=== PATIENT | male | born 1950 | race Caucasian/White ===

== ENCOUNTER 2024-03-09 08:02 | Outpatient (CLI) | payer OTHER, SELFPAY ==
--- OUTSIDE RECORDS SUMMARY | 2024-03-09 08:15 | XMS_ITS | Continuity of Care Document ---
Author Organization [facility] Address [address] [place] [address] Phone Care Team Providers Care Yield Analyst Name Role Phone Brisa Ward Unavailable Unavailable Procedures Procedure Date Office/outpatient Visit, Est Visual Field Examination(s) Office/outpatient Visit, Est Office/outpatient Visit, Est Office/outpatient Visit, Est Post-op Follow-up Visit Post-op Follow-up Visit Nov- After Cataract Laser Surgery Eye Exam Established Pt Visual Field Examination(s) Office/outpatient Visit, Est Corneal Pachymetry Post-op Follow-up Visit Post-op Follow-up Visit Post-op Follow-up Visit Remove Cataract, Insert Lens Cyclophotocoag,endoscopic Eye Exam Established Pt Echo Exam Of Eye Office/outpatient Visit, Est Advance Directives Directive Yes / No Effective Date File Name No Information Encounters Encounter Description Practice Location Reason(s) For Visit Diagnoses Date Provider Providers Copied on Encounter Office/outpat ient Visit, Est [facility], [address], [place], [place], [id number], [place] tel:[phone] [facility] No Information Oct- 9-201 0 Sylvia Ledezma. [address] [facility] , [address], [place], [place], [facility], . tel:[phone] [facility], [address], [place], [place], [id number], tel:[phone] [facility] No Information 0 Sylvia Rodrigues [address] [facility] , [address], [place], [place], [facility], [place]. tel:[phone] Referring Provider: Brisa Main [address] [place], [place] [address]ate [place] [address], [place], [place], [facility]. tel:[phone] Office/outpat ient Visit, [facility], [id number] [place] [address] [address], [place], [place], [id number], tel:[phone] [facility] No Information 0 Sylvia Rodrigues [address] [facility] , [address], [place], [place], [facility], . tel:[phone] Office/outpat ient Visit, [facility], [address] [place] [address] [address], [place], [place], [id number], [place] tel:[phone] [facility] No Information 9 Sylvia Rodrigues [facility] , [address], [place], [place], [facility], [place]. tel:[phone] Office/outpat ient Visit, [facility], [address] [place] [address] [address], [place], [place], [id number], [place] [phone] [facility] No Information 9 Sylvia Rodrigues [address] [facility] , [address], [place], [facility], . tel:[phone] [facility], [address] [place] [address] [address], [place], [place], [address], [place] tel:[phone] [facility] No Information Nov-1 3-200 8 Sylvia Pandan. [address] , [address], [place], [facility], [place]. tel:[phone] [facility] Eye [facility], [address] [place] [address] [address], [place], [place], [address], [place] tel:[phone] [facility] No Information Oct-1 6-200 8 Sylvia Pandan. [address] , [address], [place], [facility], [place]. tel:[phone] [facility], [address] [place] [address] [address], [place], [place], [id number], [place] [phone] Nov [facility] No Information Oct-1 5-200 8 Sylvia Pandan. [address] , [address], [place], [facility], [place]. tel:[phone] [facility], [address] [place] [address] [address], [place], [place], [address], [place] tel:[phone] [facility] No Information Oct-0 9-200 8 Sylvia Pandan. [address] , [address], [place], [facility], [place]. tel:[phone] [facility], [address] [place] [address] [address], [place], [place], [address], [place] tel:[phone] [facility] No Information Jay-1 9-200 8 Sylvia Pandan. [address] , [address], [place], [address], [place]. tel:[phone] Referring Provider: Brisa Main, [address], [place], [facility]. tel:[phone] Office/outpat ient Visit, Est [facility], [address] [place] [address] [address], [place], [place], [id number], [place] tel:[phone] [facility] No Information Dec-0 6-200 7 Sylvia Ledezma. [address] , [address], [place], [facility], [place]. tel:[phone] Referring Provider: Brisa Main, [address], [place], [facility]. tel:[phone] [facility], [address] [place] [address] [address], [place], [place], [address], [place] tel:[phone] [facility] No Information Aug-0 2-200 7 Sylvia Ledezma. [address] , [address], [place], [facility], [place]. tel:[phone] [facility], [address] [place] [address] [address], [place], [place], [address], [place] [phone] [facility] No Information Murray-0 5-200 7 Sylvia Ledezma. [address] , [address], [place], [facility], [place]. tel:[phone] [facility], [address] [place] [address] [address], [place], [place], [address], [place] tel:[phone] [facility] [place] No Information Jay-2 8-200 7 Sylvia Rodrigues [address] , [address], [place], [facility], [place]. tel:[phone] [facility], [address] [place] [address] [address], [place], [place], [id number], [place] tel:[phone] [facility] No Information Jay-2 7-200 7 Sylvia Pandan. [address] , [address], [place], [facility], [place]. tel:[phone] [facility], [address], [place], [place], [id number], [place] tel:[phone] [facility] No Information 7 Sylvia Ledezma. [address] [facility] , [address], [place], [address], . tel:[phone] Referring Provider: Bonnie Page [facility] [address], [place], [address]. tel:[phone] Office/outpat ient Visit, [facility], [address], [place], [place], [id number], tel:[phone] [facility] No Information Sylvia Ledezma. [address] [facility] , [address], [place], [address], . tel:[phone] Family History Family Member Type Diagnosis Age At Onset No Information Payers Payer name Insurance type Covered green party ID Authoriza tion(s) No Information Social History Type Description Quantity Date Captured Comments Sex Male Smoking Status No Information Chief Complaint And Reason For Visit No Information Reason For Referral Reason For Referral No Information History Of Present Illness Encounter Date Complaint History Of Prese nt Illness No Information Functional Status Date Functional Assessmen t No Information Instructions Date Instruction Additional Infor mation No Information Assessments Type Assessment Date No Information Patient Care Teams Name Effective Dates (start - stop) Status Members No Information
--- NOTE | 2024-04-11 15:51 | WPDSLEEPSTUD ---
Sleep Study Date of Study: 03/09/24 Ordering Provider: Ritesh Lmaa MD Interpreting Physician: Isatu Ambriz DO Sleep Study Type: Split Polysomnogram Height: 1.78 m Weight: 190.509 kg Body Mass Index: 60.2 Neck Circumference (inches): 22 [place]: 11 Reason for Sleep Study Current CPAP machine is 9 years old. Needs a new study to get new equipment. Sleep History The patient is a 73-year-old male that had a sleep study ordered by his primary care physician for evaluation of sleep apnea. The patient rarely awakens from sleep short of breath. He denies awakening at night with heartburn, belching or cough. He rarely snores but is never loud enough that others complain. He occasionally has trouble sleeping when he has a cold. He denies waking up gasping for air throughout the night. He denies having breathing problems at night observed by himself or others. He rarely sweats excessively at night. He rarely has heart palpitations or irregular heartbeats during the night. He frequently falls asleep during the day but never while driving. He denies sleep paralysis and cataplexy. He rarely has trouble at school or work due to sleepiness. He occasionally experiences vivid dreamlike scenes upon awakening or falling asleep. He denies feeling afraid of going to sleep. He denies having nightmares. He rarely remembers his dreams. He occasionally has thoughts racing through his mind. He rarely feels sad, depressed or anxious. He rarely has muscular tension. He rarely notices parts of his body jerk. He denies kicking during the night. He denies having crawling and aching feelings in his legs and denies having leg pain during the. He denies grinding his teeth during sleep and denies awakening with morning jaw pain. He is occasionally bothered by pain during the day but rarely awakened by pain during the night. He occasionally wakes up feeling stiff in the morning. He occasionally wakes up with sore or achy muscles. He rarely wakes up with pain in the neck, spine and other joints. He goes to bed at 11:00 p.m. every night. It takes him 10-15 minutes to fall asleep. He wakes up 2-3 times throughout the night to urinate is able to fall back asleep within 10-15 minutes. He wakes up at 6:00 a.m. on weekdays and at 6:30 a.m. on the weekends. He typically gets 6-7 hours of sleep per night. He will stay in bed for 10-15 minutes after waking up in the morning. He currently lives with his . He will consume caffeinated beverages within 2 hours of bedtime. He denies engaging in physical exercise before bedtime. He will watch television before falling asleep. He will take naps in the afternoon or the evening and they are refreshing. He consumes 3-5 caffeinated beverages per day. He denies tobacco, alcohol and recreational drug PMFSH Past Medical History Medical History At high risk for falls Morbid obesity with BMI of 70 and over, adult BMI 77 on 02/12/2024. Screening for diabetic retinopathy no retinopathy 06/03/2023. At low risk for fall Controlled diabetes mellitus without complication, without long-term current use of insulin fasting glucose 113 with hemoglobin A1c 5.6 on 05/09/2022. Glucose 103 with hemoglobin A1c 5.5 on 11/22/2022. Fasting glucose 122 with hemoglobin A1c 6.1 with urine microalbumin ratio normal on 05/27/2023. Glucose 101, hemoglobin A1c 6.3, GFR 88 on 12/26/2023. Encounter for prostate cancer screening PSA 0.13 on 10/23/2021. PSA 0.22 on 11/22/2022. PSA 0.18 on 12/26/2023. Morbid obesity with body mass index (BMI) of 40.0 to 49.9 Morbid obesity with BMI of 50.0-59.9, adult Morbid obesity with BMI of 60.0-69.9, adult COVID-19 (~10/08/19) Benign paroxysmal positional vertigo due to bilateral vestibular disorder Abnormal fasting glucose glucose 113 with hemoglobin A1c 5.6 on 05/09/2022. Abnormal levels of other serum enzymes Body mass index (bmi) 60.0-69.9, adult (11/16/18) Family History Family History Grandparent Family history of cardiovascular disease, Onset Age: 85 Cerebrovascular accident, Onset Age: 8 Family history of malignant neoplasm, Onset Age: 71 Family history of Alzheimer's disease, Onset Age: 90 Mother Family history of malignant neoplasm, Onset Age: 83 Father Family history of malignant neoplasm, Onset Age: 86 Social History Social History Smoking status: Never smoker Alcohol intake: never Substance use: never Substance use type: does not use Lack of Transportation: No Lack of Food: Never True Current Housing: I Have Housing Concerned About Future Housing: No Difficulty Paying Gas/Electric Bills: No Difficulty Paying for Meds: No Currently Unemployed: No Education: Master's Degree or Higher Difficulty w/ Childcare or Family Care: No Living arrangements: with family Spiritual care concerns: No Medications Home Medications ?Medication ?Instructions ?Recorded ?Confirmed ?Type dorzolamide 22.3 mg-timolol 6.8 1 drop ophthalmic (eye) BID 01/12/19 03/18/24 History mg/mL eye drops travoprost 0.004 % eye drops 1 drop ophthalmic (eye) QPM 01/12/19 03/18/24 History (Travatan Z) amlodipine 5 mg tablet 5 mg PO DAILY #90 tabs 04/21/23 03/18/24 Rx furosemide 40 mg tablet 40 mg PO QAM #90 tabs 04/21/23 03/18/24 Rx atorvastatin 20 mg tablet 20 mg PO QHS #90 tabs 06/05/23 03/18/24 Rx metformin 500 mg tablet,extended 500 mg PO BID #180 tabs 06/05/23 03/18/24 Rx release 24 hr azelastine 205.5 mcg (0.15 %) 1 spray intranasal BID PRN 02/12/24 03/18/24 Rx nasal spray allergy #30 mL lisinopril 40 mg tablet 40 mg PO . b.i.d. #180 tabs 02/12/24 03/18/24 Rx metoprolol succinate 200 mg 200 mg PO DAILY #90 tabs 03/29/24 Rx tablet,extended release 24 hr Sleep Procedure A full night split study using the [employer] SleepFireID multi-channel system recorded the standard physiologic parameters including EEG, EOG, submentalis EMG, anterior tibialis EMG, EKG, body position, nasal and oral airflow using nasal pressure sensor and thermistor.? Respiratory parameters of chest and abdominal movements were recorded with Respiratory Inductance Plethysmography belts. Oxygen saturation was recorded by pulse oximetry. Video monitoring was also performed. Sleep stages, periodic limb movements, and EEG arousals were scored in 30 second epochs according to the criteria of the AASM Scoring Manual. The Apnea-Hypopnea Index was calculated using [facility] guidelines for definition of hypopnea with 4% O2 desaturations while scoring respiratory events. Sleep Architecture During the diagnostic portion of the study, the total recording time was 219.3 minutes. The total sleep time was 127.0 minutes. Sleep latency was 5.3 minutes.? REM sleep was not achieved during this portion of the study. Sleep Efficiency was 57.9%. The patient had 33 awakenings for an awakening index of 15.6. Wake after sleep onset time was 87.0 minutes. The patient spent 38.5 minutes, 30.3% of total sleep time in Stage N1. The patient spent 88.5 minutes, 69.7% in Stage N2. The patient spent 0.0 minutes, 0.0% in Stage N3. The patient spent 0.0 minutes, 0.0% in Stage REM sleep. At 01:16:48 AM the patient was placed on PAP treatment and was titrated at pressures ranging from 5 cm H20 up to 19/15 cm H20. During the treatment portion of the study, the total recording time was 365.5 minutes.? The total sleep time was 256.5 minutes. Sleep latency was 15.5 minutes. REM latency was 189.5 minutes. Sleep Efficiency was 70.2%. Wake after Sleep Onset time was 93.5 minutes. The patient spent 26.5 minutes, 10.3% of total sleep time in Stage N1. The patient spent 196.0 minutes, 76.4% in Stage N2. The patient spent 19.5 minutes, 7.6% in Stage N3. The patient spent 14.5 minutes, 5.7% in Stage REM. Respiratory Analysis During the diagnostic portion of the study, the patient had 116 hypopneas and 35 obstructive apneas for an overall Apnea Hypopnea Index of 71.3 events per hour. The REM Apnea Hypopnea Index was 0. The NREM Apnea Hypopnea Index was 71.3. The patient had a Central Apnea Hypopnea Index of 0. There was no evidence of Boubacar-Dietz Respirations. During the treatment portion of the study, the patient had 47 hypopneas for an overall Apnea Hypopnea Index of 11.0 events per hour. The REM Apnea Hypopnea Index was 20.7. The NREM Apnea Hypopnea Index was 10.4. The patient had a Central Apnea Hypopnea Index of 0. There was no evidence of Boubacar-Dietz Respirations. The patient was started on CPAP 5 cm H2O and titrated to BPAP 19/15 cm H2O due to hypopneas. The patient was able to fall asleep starting on CPAP 5 cm H2O. The patient was able to achieve REM sleep starting on CPAP 16 cm H2O. The patient was able to achieve a residual AHI less than 5 with both NREM and REM sleep on the final pressure. On BPAP 19/15 cm H2O, the patient spent 68.5 minutes in NREM and 5.5 in REM with 5 hypopneas, resulting in an AHI of 4.1. The patient had a sleep efficiency of 64.6% on this pressure setting. Arousals During the diagnostic portion of the study, there were a total of 157 arousals for an arousal index of 74.2.? There were 51 respiratory arousals for an index of 24.1. There were 21 periodic limb movement arousals for an index of 9.9.? There were 16 isolated limb movement arousals for an index of 7.6. There were 70 spontaneous arousals for an index of 33.1. During the treatment portion of the study, there were a total of 135 arousals for an index of 31.6.? There were 4 respiratory arousals for an index of 0.9. There were 63 periodic limb movement arousals for an index of 14.7.? There were 12 isolated limb movement arousals for an index of 2.8. There were 60 spontaneous arousals for an index of 14.0. Periodic Limb Movements During the diagnostic portion of the study, the patient had 33 isolated limb movements with an index of 15.6. The patient had 83 periodic limb movements with an index of 39.2, which is elevated (normal < 15). The patient had a total of 116 limb movements with a total limb movement index of 54.8. During the treatment portion of the study, the patient had 43 isolated limb movements with an index of 10.1. The patient had 392 periodic limb movements with an index of 91.7, which is elevated (normal < 15). The patient had a total of 435 limb movements with a total limb movement index of 101.8. Oximetry Data During the diagnostic portion of the study, the patient had an average oxygen saturation of 87.5% in wake with a minimum oxygen saturation of 78% and a maximum oxygen saturation of 96%. The patient had an average oxygen saturation of 85.1% in sleep with a minimum oxygen saturation of 76.0% and a maximum oxygen saturation of 94.0%. The patient had 188 oxygen desaturations resulting in an Oxygen Desaturation Index of 88.8. The patient spent 167.8 minutes, 78% of total sleep time with an oxygen saturation less than 88%. During the treatment portion of the study, the patient had an average oxygen saturation of 90.7% in wake with a minimum oxygen saturation of 81.0% and a maximum oxygen saturation of 97.0%. The patient had an average oxygen saturation of 89.1% in sleep with a minimum oxygen saturation of 80.0% and a maximum oxygen saturation of 96.0%. The patient had 83 oxygen desaturations resulting in an Oxygen Desaturation Index of 19.4. The patient spent 103.5 minutes, 28.4% of total sleep time with an oxygen saturation less than 88%. Snoring Profile Moderate snoring was present in the baseline portion of the study. The snoring resolved once the patient was started on CPAP. Cardiac Profile The EKG lead showed normal sinus rhythm. No arrhythmias or PVCs were seen. During the diagnostic portion of the study, the average pulse rate was 60.3 bpm.? The minimum pulse rate was 53.0 bpm. The maximum pulse rate was 73.0 bpm. During the treatment portion of the study, the average pulse rate was 54.2 bpm.? The minimum pulse rate was 44.0 bpm. The maximum pulse rate was 74.0 bpm. EEG Profile No signs of seizure activity seen. Assessment and Plan Assessment and Plan (1) LANEY (obstructive sleep apnea): Code(s): G47.33 - Obstructive sleep apnea (adult) (pediatric) Status: Acute Assessment and Plan: In the baseline portion study, the patient had an overall AHI of 71.3 with desaturation down to 76%. This is consistent with severe sleep apnea. The patient was started on CPAP 5 cm H2O and titrated to BPAP 19/15 cm H2O due to hypopneas. The patient's sleep apnea resolved on the final pressure setting but his SpO2 ranged between 89-91%. I recommend that the patient be prescribed Resmed BPAP 19/15 cm H2O, size large F&P Solo nasal pillow mask, BPAP filters/tubing and heated humidity. The patient may have to switch to a standard nasal mask or a full face mask if he has difficulty tolerating the pressure setting with the mask listed above. I recommend that the patient have nocturnal oximetry done 2 weeks after starting BPAP to ensure his SpO2>90%. This should be used with all episodes of sleep.? Compliance should be reviewed within 31-90 days of starting therapy for usage greater than 4 hours per night greater than 70% of the nights. The patient should be asked about symptoms such as?excessive daytime sleepiness, quality of sleep, decreased nocturia, increased?mental functioning such as memory, mood, and concentration. Data The data obtained during this sleep study is adequate for interpretation. Certification This sleep study has been reviewed by a board certified sleep medicine physician.
[2024-04-12 10:30] VITALS: BMI 60.2
== END 2024-03-10 08:02 | disposition home or self-care (01) ==
PROVIDERS: Visit Provider Family Medicine
DX: G47.33 Obstructive sleep apnea (adult) (pediatric) (principal); I10 Essential (primary) hypertension; Z99.89 Dependence on other enabling machines and devices
CPT/HCPCS: 95811

== ENCOUNTER 2024-05-07 01:02 | Day surgery (SDC) | payer OTHER, SELFPAY ==
[2024-03-18 09:05] VITALS: BMI 57.4
--- NOTE | 2024-04-27 08:45 | PC.NURSE ---
Spoke with patient who confirms no new health history or medications.
--- OUTSIDE RECORDS SUMMARY | 2024-05-07 01:05 | XMS_ITS | Continuity of Care Document ---
Author Organization [facility] Address [address] [place] [address] Phone Care Team Providers Care Dial Marker Name Role Phone Brisa Ward Unavailable Unavailable [...] on Encounter Office/outpat ient Visit, Est [facility], [address], [place], [place], [id number], [place] tel:[phone] SEC [facility] No Information Oct-0 9-201 0 Sylvia Ledezma. [address] [facility] , [address], [place], [place], [facility], . tel:[phone] [facility], [address], [place], [place], [id number], tel:[phone] SEC [facility] No Information 0 Sylvia Rodrigues [address] [facility] , [address], [place], [facility], [place]. tel:[phone] Referring Provider: Brisa Main [address] [place], [place] [address], [place], [facility]. tel:[phone] Office/outpat ient Visit, [facility], [address] [place] [address] [address], [place], [place], [id number], tel:[phone] [facility] No Information 0 Sylvia Rodrigues [address] [facility] , [address], [place], [facility], . tel:[phone] Office/outpat ient Visit, [facility], [address] [place] [address] [address], [place], [place], [address], [place] tel:[phone] [facility] No Information 9 Sylvia Rodrigues [facility] , [address], [place], [facility], [place]. tel:[phone] Office/outpat ient Visit, [facility], [address] [place] [address] [address], [place], [place], [address], [place] [phone] [facility] No Information 9 Sylvia Rodrigues [address] [facility] , [address], [place], [facility], . tel:[phone] [facility], [address] [place] [address] [address], [place], [place], [address], [place] tel:[phone] SEC [facility] No Information Nov-1 3-200 8 Sylvia Pandan. [address] , [address], [place], [facility], [place]. tel:[phone] [facility], [address] [place] [address] [address], [place], [place], [address], [place] tel:[phone] SEC [facility] No Information Oct-1 6-200 8 Sylvia Pandan. [address] , [address], [place], [facility], [place]. tel:[phone] [facility], [address] [place] [address] [address], [place], [place], [address], [place] [phone] Nov [facility] No Information Oct-1 5-200 8 Sylvia Pandan. [address] , [address], [place], [facility], [place]. tel:[phone] [facility], [address] [place] [address] [address], [place], [place], [address], [place] tel:[phone] SEC [facility] No Information Oct-0 9-200 8 Sylvia Pandan. [address] , [address], [place], [facility], [place]. tel:[phone] [facility], [address] [place] [address] [address], [place], [place], [address], [place] tel:[phone] SEC [facility] No Information Jay-1 9-200 8 Sylvia Pandan. [address] , [address], [place], [address], [place]. tel:[phone] Referring Provider: Brisa Main, [address], [place], [facility]. tel:[phone] Office/outpat ient Visit, Est [facility], [address] [place] [address] [address], [place], [place], [address], [place] tel:[phone] SEC [facility] No Information Dec-0 6-200 7 Sylvia Ledezma. [address] , [address], [place], [facility], [place]. tel:[phone] Referring Provider: Brisa Main, [address], [place], [facility]. tel:[phone] [facility], [address] [place] [address] [address], [place], [place], [address], [place] tel:[phone] SEC [facility] No Information Aug-0 2-200 7 Sylvia Ledezma. [address] , [address], [place], [facility], [place]. tel:[phone] [facility], [address] [place] [address] [address], [place], [place], [address], [place] [phone] [facility] No Information Murray-0 5-200 7 Sylvia Ledezma. [address] , [address], [place], [facility], [place]. tel:[phone] [facility], [address] [place] [address] [address], [place], [place], [address], [place] tel:[phone] [facility] No Information Jay-2 8-200 7 Sylvia Rodrigues [address] , [address], [place], [facility], [place]. tel:[phone] [facility], [address] [place] [address] [address], [place], [place], [address], [place] tel:[phone] [facility] No Information Jay-2 7-200 7 Sylvia Pandan. [address] , [address], [place], [facility], [place]. tel:[phone] [facility], [address], [place], [place], [address], [place] tel:[phone] [facility] No Information 7 Sylvia Ledezma. [address] [facility] , [address], [place], [address], . tel:[phone] Referring Provider: Bonnie Page [facility] [address], [place], [address]. tel:[phone] Office/outpat ient Visit, [facility], [address], [place], [place], [id number], tel:[phone] [facility] No Information Sylvia Ledezma. [address] [facility] , [address], [place], [address], . tel:[phone] Family History Family Member Type Diagnosis Age At Onset No Information Payers Payer name Insurance type Covered constitution party ID Authoriza tion(s) No Information Social [...]
[2024-05-07 11:12] VITALS: BP 178/96; PULSE 80; RESP 20; TEMP 35.9; O2SAT 97
[2024-05-07] MEDS: LACTATED RINGERS 1,000 ML 150 ML IV CONT (11:28)
[2024-05-07 11:30] LABS: Glucose Point of Care 159 mg/dl (65-105)
--- NOTE | 2024-05-07 12:03 | WPDANESEPPF ---
Anes - Initial Pre Proc Eval Procedure: Operation Date: 05/07/24 12:30 Proposed Procedures p Colonoscopy - Trever Langford MD Date/Time: 05/07/24 12:03 Surgeon: Trever Langford MD Pre Op Diagnosis: Fecal abnormalities Patient Data Age: 73 Gender: M Height: 1.78 m Weight: 206.6 kg Last Vital Signs Temp 35.9 C L 05/07/24 11:12 Pulse 80 05/07/24 11:12 Resp 20 05/07/24 11:12 BP 178/96 H 05/07/24 11:12 Pulse Ox 97 05/07/24 11:12 O2 Del Method Room Air 05/07/24 11:12 Allergies Allergy/AdvReac Type Severity Reaction Status Date / Time No Known Allergies Allergy Verified 05/07/24 11:10 Home Medications ?Medication ?Instructions ?Recorded ?Confirmed ?Type dorzolamide 22.3 mg-timolol 6.8 1 drop ophthalmic (eye) BID 01/12/19 05/07/24 History mg/mL eye drops travoprost 0.004 % eye drops 1 drop ophthalmic (eye) QPM 01/12/19 05/07/24 History (Travatan Z) amlodipine 5 mg tablet 5 mg PO DAILY #90 tabs 04/21/23 05/07/24 Rx furosemide 40 mg tablet 40 mg PO QAM #90 tabs 04/21/23 05/07/24 Rx atorvastatin 20 mg tablet 20 mg PO QHS #90 tabs 06/05/23 05/07/24 Rx metformin 500 mg tablet,extended 500 mg PO BID #180 tabs 06/05/23 05/07/24 Rx release 24 hr azelastine 205.5 mcg (0.15 %) 1 spray intranasal BID PRN 02/12/24 03/18/24 Rx nasal spray allergy #30 mL lisinopril 40 mg tablet 40 mg PO . b.i.d. #180 tabs 02/12/24 05/07/24 Rx metoprolol succinate 200 mg 200 mg PO DAILY #90 tabs 03/29/24 05/07/24 Rx tablet,extended release 24 hr Laboratory Tests 05/07/24 11:17 POC Capillary Glucose 159 H mg/dl (65-105) Patient hx anesthesia problems: none Family hx anesthesia problems: none Results Review: All pre-operative results and documents have been reviewed as part of the pre-operative evaluation. [facility] Past Medical History Medical History PLMD (periodic limb movement disorder) significant periodic limb movement disorder noted on split night sleep study 03/09/2024 with index of 39.2 At high risk for falls Morbid obesity with BMI of 70 and over, adult BMI 77 on 02/12/2024. Screening for diabetic retinopathy no retinopathy 06/03/2023. At low risk for fall Controlled diabetes mellitus without complication, without long-term current use of insulin fasting glucose 113 with hemoglobin A1c 5.6 on 05/09/2022. Glucose 103 with hemoglobin A1c 5.5 on 11/22/2022. Fasting glucose 122 with hemoglobin A1c 6.1 with urine microalbumin ratio normal on 05/27/2023. Glucose 101, hemoglobin A1c 6.3, GFR 88 on 12/26/2023. Encounter for prostate cancer screening PSA 0.13 on 10/23/2021. PSA 0.22 on 11/22/2022. PSA 0.18 on 12/26/2023. Morbid obesity with body mass index (BMI) of 40.0 to 49.9 Morbid obesity with BMI of 50.0-59.9, adult Morbid obesity with BMI of 60.0-69.9, adult COVID-19 (~10/08/19) Benign paroxysmal positional vertigo due to bilateral vestibular disorder Abnormal fasting glucose glucose 113 with hemoglobin A1c 5.6 on 05/09/2022. Abnormal levels of other serum enzymes Body mass index (bmi) 60.0-69.9, adult (11/16/18) Family History Family History Grandparent Family history of cardiovascular disease, Onset Age: 85 Cerebrovascular accident, Onset Age: 8 Family history of malignant neoplasm, Onset Age: 71 Family history of Alzheimer's disease, Onset Age: 90 Mother Family history of malignant neoplasm, Onset Age: 83 Father Family history of malignant neoplasm, Onset Age: 86 Social History Social History Smoking status: Never smoker Alcohol intake: never Substance use: never Substance use type: does not use Lack of Transportation: No Lack of Food: Never True Current Housing: I Have Housing Concerned About Future Housing: No Difficulty Paying Gas/Electric Bills: No Difficulty Paying for Meds: No Currently Unemployed: No Education: Master's Degree or Higher Difficulty w/ Childcare or Family Care: No Living arrangements: with family Spiritual care concerns: No Anes - Eval Final PreProcedure Day of Procedure 05/07/24 12:03 Patient weight: super morbidly obese Heart: regular rate and rhythm Lungs: clear to auscultation Airway: Mallampati scale class II Neurological: alert and oriented Last oral intake: >/= 8 hours ASA classification: IV Emergent: no Anesthetic plan: proceed Anesthesia type and monitoring: general GIVS and standard monitoring Results Review: All pre-operative results and documents have been reviewed as part of the pre-operative evaluation. Informed Consent: The patient's anesthetic plan and its attendant risks and benefits were discussed with the patient/family/POA. Questions were solicited and answers provided to the satisfaction of the patient/family/POA.
[2024-05-07 13:08] VITALS: BP 130/77; PULSE 59; RESP 19; O2SAT 95
[2024-05-07 13:18] VITALS: BP 134/80; PULSE 55; RESP 22; O2SAT 100
[2024-05-07 13:28] VITALS: BP 156/78; PULSE 55; RESP 23; O2SAT 100
--- NOTE | 2024-05-11 15:24 | P.HP_ITS ---
H&P: HPI History of Present Illness Date/Time: 05/11/24 15:24 - note corresponding to enconter of 05/07/24 Chief Complaint: History of colon polyps Narrative: The patient has a history of colonic polyps, the last colonoscopy was around 5 years ago Review of Systems Review of Systems: All systems reviewed & are unremarkable except as noted in HPI and below PMFSH Past Medical History Medical History (Updated 05/11/24 @ 08:13 by Ritesh Lama MD) Adenomatous colon polyp (~05/07/24) tubular adenoma transverse colon and sigmoid colon with hyperplastic polyp of the rectum on 05/07/2024. PLMD (periodic limb movement disorder) significant periodic limb movement disorder noted on split night sleep study 03/09/2024 with index of 39.2 At high risk for falls Morbid obesity with BMI of 70 and over, adult BMI 77 on 02/12/2024. Screening for diabetic retinopathy no retinopathy 06/03/2023. At low risk for fall Controlled diabetes mellitus without complication, without long-term current use of insulin fasting glucose 113 with hemoglobin A1c 5.6 on 05/09/2022. Glucose 103 with hemoglobin A1c 5.5 on 11/22/2022. Fasting glucose 122 with hemoglobin A1c 6.1 with urine microalbumin ratio normal on 05/27/2023. Glucose 101, hem oglobin A1c 6.3, GFR 88 on 12/26/2023. Encounter for prostate cancer screening PSA 0.13 on 10/23/2021. PSA 0.22 on 11/22/2022. PSA 0.18 on 12/26/2023. Morbid obesity with body mass index (BMI) of 40.0 to 49.9 Morbid obesity with BMI of 50.0-59.9, adult Morbid obesity with BMI of 60.0-69.9, adult COVID-19 (~10/08/19) Benign paroxysmal positional vertigo due to bilateral vestibular disorder Abnormal fasting glucose glucose 113 with hemoglobin A1c 5.6 on 05/09/2022. Abnormal levels of other serum enzymes Body mass index (bmi) 60.0-69.9, adult (11/16/18) Family History Family History Grandparent Family history of cardiovascular disease, Onset Age: 85 Cerebrovascular accident, Onset Age: 8 Family history of malignant neoplasm, Onset Age: 71 Family history of Alzheimer's disease, Onset Age: 90 Mother Family history of malignant neoplasm, Onset Age: 83 Father Family history of malignant neoplasm, Onset Age: 86 Social History Social History Smoking status: Never smoker Alcohol intake: never Substance use: never Substance use type: does not use Lack of Transportation: No Lack of Food: Never True Current Housing: I Have Housing Concerned About Future Housing: No Difficulty Paying Gas/Electric Bills: No Difficulty Paying for Meds: No Currently Unemployed: No Education: Master's Degree or Higher Difficulty w/ Childcare or Family Care: No Living arrangements: with family Spiritual care concerns: No Meds Home Medications and Allergies Home Medications ?Medication ?Instructions ?Recorded ?Confirmed ?Type dorzolamide 22.3 mg-timolol 6.8 1 drop ophthalmic (eye) BID 01/12/19 05/07/24 History mg/mL eye drops travoprost 0.004 % eye drops 1 drop ophthalmic (eye) QPM 01/12/19 05/07/24 History (Travatan Z) amlodipine 5 mg tablet 5 mg PO DAILY #90 tabs 04/21/23 05/07/24 Rx furosemide 40 mg tablet 40 mg PO QAM #90 tabs 04/21/23 05/07/24 Rx atorvastatin 20 mg tablet 20 mg PO QHS #90 tabs 06/05/23 05/07/24 Rx metformin 500 mg tablet,extended 500 mg PO BID #180 tabs 06/05/23 05/07/24 Rx release 24 hr azelastine 205.5 mcg (0.15 %) 1 spray intranasal BID PRN 02/12/24 03/18/24 Rx nasal spray allergy #30 mL lisinopril 40 mg tablet 40 mg PO . b.i.d. #180 tabs 02/12/24 05/07/24 Rx metoprolol succinate 200 mg 200 mg PO DAILY #90 tabs 03/29/24 05/07/24 Rx tablet,extended release 24 hr Allergies Allergy/AdvReac Type Severity Reaction Status Date / Time No Known Allergies Allergy Verified 05/07/24 11:10 Exam Const: General: cooperative and healthy appearing Resp: Effort & Inspection: normal respiratory effort and able to speak in complete sentences Auscultation: clear to auscultation bilaterally Cardio: Rate: regular rate Rhythm: regular rhythm GI: Inspection: normal to inspection GI Palp: No No hepatosplenomegaly present Auscultation: normal bowel sounds Rectal Exam: deferred Skin: General skin exam: normal color Psych: Appearance: grossly normal Mental Status: mental status grossly normal Assessment and Plan Assessment and plan (1) Benign colon polyp: Code(s): K63.5 - Polyp of colon Status: Acute Assessment and Plan: The patient is deemed a good candidate for the procedure. Consent signed. Will proceed.
== END 2024-05-07 13:36 | disposition home or self-care (01) ==
PROVIDERS: PCP Family Medicine; Referring Provider Family Medicine; Visit Provider Internal Medicine Gastroenterology
PROC: 0DJD8ZZ Inspection of Lower Intestinal Tract, Via Natural or Artificial Opening Endoscopic (ICD-10-PCS; CPT 45378; principal; 2024-05-07 12:30)
DX: Z12.11 Encounter for screening for malignant neoplasm of colon (principal); D12.3 Benign neoplasm of transverse colon; D12.5 Benign neoplasm of sigmoid colon; K62.1 Rectal polyp; K57.30 Diverticulosis of large intestine without perforation or abscess without bleeding; E11.9 Type 2 diabetes mellitus without complications; G47.61 Periodic limb movement disorder; E66.01 Morbid (severe) obesity due to excess calories; Z68.44 Body mass index [BMI] 60.0-69.9, adult; Z79.84 Long term (current) use of oral hypoglycemic drugs; Z80.9 Family history of malignant neoplasm, unspecified; Z82.49 Family history of ischemic heart disease and other diseases of the circulatory system
CPT/HCPCS: 45385; 82948; 88305; J2003; J2704; J7120